=== PATIENT | male | born 1940 | race Two or more races ===

== ENCOUNTER 2019-03-06 15:39 | Emergency (ER) | payer BC, MEDICARE ==
[~2019-03-06] VITALS: Ht 180.3 cm; Wt 134.1 kg
[~2019-03-06 15:39] MED LIST: ASPI81TA52 PO; CARV-50 PO; GLIP10TA11 PO; LISI40TA4 PO; MECL12.584 PO; OXYB5TAB16 PO
[2019-03-06 16:17] LABS: BASOPHILS # (AUTO) 0.1 X10'3 (0-0.2); BASOPHILS % (AUTO) 0.6 % (0-1); EOSINOPHILS # (AUTO) 0.2 X10'3 (0-0.9); EOSINOPHILS % (AUTO) 2.7 % (0-6); HEMATOCRIT 41.9 % (42.0-52.0); HEMOGLOBIN 14.5 g/dl (14.0-17.9); LYMPHOCYTES # (AUTO) 1.8 X10'3 (1.1-4.8); MEAN CORPUSCULAR HEMOGLOBIN 33.1 PG (27.0-31.0); MEAN CORPUSCULAR HGB CONC 34.6 g/dL (33.0-36.5); MEAN CORPUSCULAR VOLUME 95.7 FL (78-98); MEAN PLATELET VOLUME 7.9 FL (7.4-10.4); MONOCYTES # (AUTO) 0.7 X10'3 (0-0.9); MONOCYTES % (AUTO) 8.2 % (2-12); NEUTROPHILS # (AUTO) 6.1 X10'3 (1.8-7.7); NEUTROPHILS % (AUTO) 68.5 % (42-75); PLATELET COUNT 254 X10'3 (140-440); RED BLOOD COUNT 4.38 X10'6 (4.70-6.10); RED CELL DISTRIBUTION WIDTH 13.4 % (11.5-14.5); WHITE BLOOD COUNT 8.9 X10'3 (4.5-11.0)
[2019-03-06 16:28] LABS: PARTIAL THROMBOPLASTIN TIME 27 SECONDS (22-32)
[2019-03-06 16:30] LABS: ALANINE AMINOTRANSFERASE 26 U/L (12-78); ALBUMIN 3.3 G/DL (3.4-5.0); ALBUMIN/GLOBULIN RATIO 0.7 (1.1-1.5); ALKALINE PHOSPHATASE 71 IU/L (46-116); ANION GAP 6 (8-16); ASPARTATE AMINO TRANSFERASE 24 U/L (10-37); BILIRUBIN,TOTAL 0.8 MG/DL (0.1-1.0); BLOOD UREA NITROGEN 12 MG/DL (7-18); BUN/CREATININE RATIO 11.7 (5.4-32.0); CALCIUM 9.4 MG/DL (8.5-10.1); CHLORIDE 98 MMOL/L (99-107); CREATININE 1.03 MG/DL (0.60-1.10); GLUCOSE 416 MG/DL (70-104); POTASSIUM 4.3 MMOL/L (3.5-5.1); SODIUM 132 MMOL/L (135-145); TOTAL CARBON DIOXIDE 28.3 MMOL/L (24-32); TOTAL PROTEIN 8.2 G/DL (6.4-8.2); eGFR 70 ML/MIN
[2019-03-06 16:54] LABS: D-DIMER 1.05 MG/L FEU (0-0.50)
[2019-03-06] MEDS ORDERED: iohexol 350MG/ML 100ml bottle IV ONE (17:47)
[2019-03-06] MEDS ORDERED: MESSAGE TO NURSING PO NR (18:42)
--- NOTE | 2019-03-06 19:24 | NUR ---
DISCUSSED PT'S BP WITH CAROLANN valderrama; new order for lisinopril 40mg once received
[2019-03-06] MEDS ORDERED: lisinopril 10 MG tablet PO ONE (19:35)
[2019-03-06 20:14] VITALS: BP 166/65
== END 2019-03-06 20:22 | disposition home or self-care (01) ==
LOC: ER 15:39
DX: S80.01XA Contusion of right knee, initial encounter (principal); R06.00 Dyspnea, unspecified; E78.00 Pure hypercholesterolemia, unspecified; I10 Essential (primary) hypertension; E11.9 Type 2 diabetes mellitus without complications; Z90.49 Acquired absence of other specified parts of digestive tract; Z79.82 Long term (current) use of aspirin; Z79.899 Other long term (current) drug therapy; W18.09XA Striking against other object with subsequent fall, initial encounter; Y93.89 Activity, other specified; Y92.89 Other specified places as the place of occurrence of the external cause; Y99.8 Other external cause status
CPT/HCPCS: 36415; 71045; 71275; 73564; 80053; 83880; 84484; 85025; 85379; 85610; 85730; 93005; 99284; Q9967

== ENCOUNTER 2019-09-17 10:04 | Inpatient (IN) | payer MEDICARE, BC ==
[~2019-09-17] VITALS: Ht 180.3 cm; Wt 138.0 kg
[~2019-09-17 10:04] MED LIST changes: +MECL-184 PO; -MECL12.584 PO
[2019-09-17] MEDS ORDERED: diltiazem 5mg/ml 5ml inj. IV ONE (10:25)
[2019-09-17] MEDS ORDERED: glipizide 5mg tablet PO SCH (11:00)
[2019-09-17] MEDS ORDERED: lisinopril 10 MG tablet PO ONE (11:00)
[2019-09-17] MEDS ORDERED: glipizide 5mg tablet PO ONE (11:00)
[2019-09-17] MEDS ORDERED: furosemide 10 MG/1 ML 10ml inj IV ONE (11:00)
[2019-09-17] MEDS ORDERED: aspirin 325mg tablet PO ONE (11:00)
[2019-09-17 11:20] LABS: BASOPHILS % (AUTO) 0.5 % (0-1); EOSINOPHILS # (AUTO) 0.1 X10'3 (0-0.9); EOSINOPHILS % (AUTO) 1.1 % (0-6); HEMATOCRIT 52.4 % (42.0-52.0); HEMOGLOBIN 17.4 g/dl (14.0-17.9); LYMPHOCYTES % (AUTO) 12.5 % (21-51); MEAN CORPUSCULAR HEMOGLOBIN 31.6 PG (27.0-31.0); MEAN CORPUSCULAR HGB CONC 33.1 g/dL (33.0-36.5); MEAN CORPUSCULAR VOLUME 95.5 FL (78-98); MEAN PLATELET VOLUME 8.1 FL (7.4-10.4); MONOCYTES # (AUTO) 0.7 X10'3 (0-0.9); MONOCYTES % (AUTO) 9.2 % (2-12); NEUTROPHILS # (AUTO) 5.9 X10'3 (1.8-7.7); NEUTROPHILS % (AUTO) 76.7 % (42-75); PLATELET COUNT 205 X10'3 (140-440); RED BLOOD COUNT 5.49 X10'6 (4.70-6.10); RED CELL DISTRIBUTION WIDTH 14.9 % (11.5-14.5); WHITE BLOOD COUNT 7.7 X10'3 (4.5-11.0)
[2019-09-17 11:32] LABS: PARTIAL THROMBOPLASTIN TIME 29 SECONDS (22-32)
[2019-09-17 11:44] LABS: ALANINE AMINOTRANSFERASE 34 U/L (12-78); ALBUMIN 3.3 G/DL (3.4-5.0); ALBUMIN/GLOBULIN RATIO 0.7 (1.1-1.5); ALKALINE PHOSPHATASE 70 IU/L (46-116); ANION GAP 4 (8-16); ASPARTATE AMINO TRANSFERASE 28 U/L (10-37); BILIRUBIN,TOTAL 1.3 MG/DL (0.1-1.0); BLOOD UREA NITROGEN 21 MG/DL (7-18); BUN/CREATININE RATIO 18.9 (5.4-32.0); CALCIUM 9.1 MG/DL (8.5-10.1); CHLORIDE 101 MMOL/L (99-107); CREATININE 1.11 MG/DL (0.60-1.10); GLUCOSE 301 MG/DL (70-104); POTASSIUM 4.5 MMOL/L (3.5-5.1); SODIUM 139 MMOL/L (135-145); TOTAL CARBON DIOXIDE 34.5 MMOL/L (24-32); TOTAL PROTEIN 7.9 G/DL (6.4-8.2); eGFR 64 ML/MIN
[2019-09-17] MEDS ORDERED: mag hydrox/Alum hydrox/simeth 30ml oral suspension PO PRN (14:10)
[2019-09-17] MEDS ORDERED: docusate sod 100mg capsule PO PRN (14:10)
[2019-09-17] MEDS ORDERED: dextrose ORAL solution 15 GM/59 ML bottle PO PRN (14:10)
[2019-09-17] MEDS ORDERED: acetaminophen 325mg tablet PO PRN (14:10)
[2019-09-17] MEDS ORDERED: magnesium Cl slow-release 64mg tablet PO PRN (14:10)
[2019-09-17] MEDS ORDERED: ondansetron/PF 4mg/2ml inj IV PRN (14:10)
[2019-09-17] MEDS ORDERED: MESSAGE TO PHARMACY PO ONE (14:10)
[2019-09-17] MEDS ORDERED: potassium CL 10mEq/100ml bag 100 ML IV PRN ×2 (14:10)
[2019-09-17] MEDS ORDERED: magnesium 4gm in 100ml NS 100 ML IV PRN (14:10)
[2019-09-17] MEDS ORDERED: dextrose 50%-water 50ml dispensing syringe IV PRN ×2 (14:10)
[2019-09-17] MEDS ORDERED: magnesium 2GM in 50ml NS 50 ML IV PRN (14:10)
[2019-09-17] MEDS ORDERED: glucagon, human recombinant 1mg kit SUBCUT PRN (14:10)
[2019-09-17] MEDS ORDERED: potassium Cl 20 mEq SR tablet PO PRN ×2 (14:10)
[2019-09-17 15:15] LABS: HEMOGLOBIN A1C 7.9 % (4.5-6.2)
[2019-09-17] MEDS ORDERED: CARV-50 PO (15:42)
--- NOTE | 2019-09-17 16:20 | NUR ---
Received report from HARPAL Toth. Waiting for patient arrival to U [id number].
--- NOTE | 2019-09-17 16:35 | NUR ---
Patient arrived to PCU and transferred from [facility] to [facility] bed. Patient oriented to room and to call light. Patient vital signs: T 97.5, RR: 22, 02 95% on 3L NC, BP 176/110, Pain 0/10. 2 RN skin check performed. No complaints at this time. All immediate needs met.
[2019-09-17 18:00] VITALS: BP 158/104
--- NOTE | 2019-09-17 18:30 | NUR ---
Problems reprioritized. Patient report given, questions answered & plan of care reviewed with Surinder RN. Patient stable at transfer of care.
[2019-09-17] MEDS: insulin Lispro (HumaLOG) vial - multi-dose SQ SCH (19:30)
[2019-09-17] MEDS: K and/or MAG REPLACEMENT MC SCH (19:32)
--- NOTE | 2019-09-17 19:34 | NUR ---
Patient in room PCU 3027. I have received report from Latonya ROWAN and had the opportunity to ask questions and assume patient care.
[2019-09-17] MEDS ORDERED: carVEDilol 12.5mg tablet PO SCH (20:00)
[2019-09-17] MEDS: apixaban 5mg tablet PO SCH (20:11)
[2019-09-17] MEDS: carVEDilol 12.5mg tablet PO SCH (20:11)
[2019-09-17] MEDS: furosemide 40mg/4ml inj IV SCH (20:11)
[2019-09-17] MEDS: insulin glargine (Lantus) pen - multi-dose SQ SCH (21:00)
[2019-09-17] MEDS: nystatin 15 GM powder TP SCH (21:00)
--- NOTE | 2019-09-17 21:00 | NUR ---
Patients blood sugar 322, explained to patient the need for him to have insulin. Patient does not want to take insulin now and just wants to take his glipizide in the morning.
[2019-09-17 22:00] VITALS: BP 146/89
[2019-09-18] VITALS (7 sets, daily range): BP systolic 109–148; BP diastolic 61–78
[2019-09-18 05:02] LABS: BASOPHILS % (AUTO) 0.4 % (0-1); EOSINOPHILS # (AUTO) 0.1 X10'3 (0-0.9); EOSINOPHILS % (AUTO) 2.3 % (0-6); HEMATOCRIT 49.9 % (42.0-52.0); HEMOGLOBIN 16.6 g/dl (14.0-17.9); LYMPHOCYTES # (AUTO) 0.9 X10'3 (1.1-4.8); LYMPHOCYTES % (AUTO) 15.6 % (21-51); MEAN CORPUSCULAR HEMOGLOBIN 31.6 PG (27.0-31.0); MEAN CORPUSCULAR HGB CONC 33.3 g/dL (33.0-36.5); MONOCYTES # (AUTO) 0.6 X10'3 (0-0.9); MONOCYTES % (AUTO) 10.5 % (2-12); NEUTROPHILS # (AUTO) 4.3 X10'3 (1.8-7.7); NEUTROPHILS % (AUTO) 71.2 % (42-75); PLATELET COUNT 182 X10'3 (140-440); RED BLOOD COUNT 5.25 X10'6 (4.70-6.10); RED CELL DISTRIBUTION WIDTH 14.7 % (11.5-14.5)
[2019-09-18 05:30] LABS: ALANINE AMINOTRANSFERASE 27 U/L (12-78); ALBUMIN 2.9 G/DL (3.4-5.0); ALBUMIN/GLOBULIN RATIO 0.7 (1.1-1.5); ALKALINE PHOSPHATASE 64 IU/L (46-116); ANION GAP 3 (8-16); ASPARTATE AMINO TRANSFERASE 26 U/L (10-37); BILIRUBIN,TOTAL 1.3 MG/DL (0.1-1.0); BLOOD UREA NITROGEN 18 MG/DL (7-18); BUN/CREATININE RATIO 17.8 (5.4-32.0); CALCIUM 8.5 MG/DL (8.5-10.1); CHLORIDE 100 MMOL/L (99-107); CHOL/HDL RATIO 2.8 (0.00-4.99); CHOLESTEROL 122 MG/DL (0-200); CREATININE 1.01 MG/DL (0.60-1.10); GLUCOSE 258 MG/DL (70-104); HDL CHOLESTEROL 44 MG/DL (35-60); LDL CHOLESTEROL 64 MG/DL (50-100); MAGNESIUM 1.6 MG/DL (1.5-2.4); POTASSIUM 3.5 MMOL/L (3.5-5.1); SODIUM 137 MMOL/L (135-145); TOTAL CARBON DIOXIDE 33.7 MMOL/L (24-32); TOTAL PROTEIN 7.2 G/DL (6.4-8.2); TRIGLYCERIDES 92 MG/DL (20-135); eGFR 72 ML/MIN
--- NOTE | 2019-09-18 06:10 | NUR ---
Patient in room PCU 3027P. I have received report from Surinder ROWAN and had the opportunity to ask questions and assume patient care.
--- NOTE | 2019-09-18 06:20 | NUR ---
Problems reprioritized. Patient report given, questions answered & plan of care reviewed with Ann Campa.
[2019-09-18] MEDS: nystatin 15 GM powder TP SCH ×3 (08:00→21:36)
[2019-09-18] MEDS: K and/or MAG REPLACEMENT MC SCH ×2 (08:00→20:00)
--- NOTE | 2019-09-18 08:15 | NUR ---
Patient self removed IV in middle of night last night. Unable to give lasix IV at time of medication administration. Dr. Del Valle notified at 0930 in person that pt discontinued IV. Orders to give one time dose of Lasix 40mg PO and then resume BID dosing of PO lasix as planned tonight.
[2019-09-18] MEDS: furosemide 40mg/4ml inj IV SCH (08:24)
[2019-09-18] MEDS: aspirin 81mg tablet.DR PO SCH (08:25)
[2019-09-18] MEDS: enoxaparin 40mg/0.4ml syringe SQ SCH (08:25)
[2019-09-18] MEDS: carVEDilol 12.5mg tablet PO SCH ×2 (08:25→19:08)
[2019-09-18] MEDS: lisinopril 20mg tablet PO SCH (08:26)
[2019-09-18] MEDS: apixaban 5mg tablet PO SCH ×2 (08:26→19:09)
[2019-09-18] MEDS: insulin Lispro (HumaLOG) vial - multi-dose SQ SCH ×3 (08:34→19:18)
[2019-09-18] MEDS ORDERED: furosemide 20MG tablet PO ONE (09:30)
--- NOTE | 2019-09-18 13:10 | NUR ---
DM Consult: A1C 7.9 hx T2DM. Pt seen by RD for written/verbal DM ed w/ RD contact information provided. Pt declined verbal DM ed at this time; RD encouraged pt to attend CDE course once reopens. Pt does report disliking cucumbers but no allergies/texture preferences. Dietary notified. Addendum: 09/18/19 at [address] Amended: Links added.
--- NOTE | 2019-09-18 18:20 | NUR ---
Problems reprioritized. Patient report given, questions answered & plan of care reviewed with Macey ROWAN.
[2019-09-18] MEDS: furosemide 20MG tablet PO SCH (19:09)
[2019-09-18] MEDS: insulin glargine (Lantus) pen - multi-dose SQ SCH (21:00)
[2019-09-18] MEDS: dextrose ORAL solution 15 GM/59 ML bottle PO PRN ×2 (21:44→22:05)
--- NOTE | 2019-09-18 22:16 | NUR ---
Pt's blood sugar @ 2137 = 69; he is alert/oriented x 4, has cold, clammy skin. Gluco-shot 15 grams was immediately administered to the pt and rechecked BS after 15 minutes. BS was 61 @ 2203 ; pt is a/o x 4 still, still has cold, clammy skin. Second dose of Gluco-shot & snacks were given. Blood sugar rechecked @ 2216, BS = 146; pt stated that he felt better.
[2019-09-19] VITALS (7 sets, daily range): BP systolic 121–141; BP diastolic 68–83
[2019-09-19 06:05] LABS: BASOPHILS % (AUTO) 0.4 % (0-1); EOSINOPHILS # (AUTO) 0.1 X10'3 (0-0.9); EOSINOPHILS % (AUTO) 1.2 % (0-6); HEMATOCRIT 47.6 % (42.0-52.0); LYMPHOCYTES # (AUTO) 1.4 X10'3 (1.1-4.8); LYMPHOCYTES % (AUTO) 18.4 % (21-51); MEAN CORPUSCULAR HEMOGLOBIN 31.9 PG (27.0-31.0); MEAN CORPUSCULAR HGB CONC 33.7 g/dL (33.0-36.5); MEAN CORPUSCULAR VOLUME 94.7 FL (78-98); MEAN PLATELET VOLUME 8.1 FL (7.4-10.4); MONOCYTES # (AUTO) 0.9 X10'3 (0-0.9); MONOCYTES % (AUTO) 12.5 % (2-12); NEUTROPHILS % (AUTO) 67.5 % (42-75); PLATELET COUNT 201 X10'3 (140-440); RED BLOOD COUNT 5.02 X10'6 (4.70-6.10); RED CELL DISTRIBUTION WIDTH 14.3 % (11.5-14.5); WHITE BLOOD COUNT 7.3 X10'3 (4.5-11.0)
[2019-09-19 06:21] LABS: ALANINE AMINOTRANSFERASE 25 U/L (12-78); ALBUMIN 2.9 G/DL (3.4-5.0); ALBUMIN/GLOBULIN RATIO 0.7 (1.1-1.5); ALKALINE PHOSPHATASE 60 IU/L (46-116); ANION GAP 4 (8-16); ASPARTATE AMINO TRANSFERASE 29 U/L (10-37); BILIRUBIN,TOTAL 1.2 MG/DL (0.1-1.0); BLOOD UREA NITROGEN 21 MG/DL (7-18); BUN/CREATININE RATIO 19.4 (5.4-32.0); CALCIUM 8.6 MG/DL (8.5-10.1); CHLORIDE 100 MMOL/L (99-107); CREATININE 1.08 MG/DL (0.60-1.10); GLUCOSE 100 MG/DL (70-104); MAGNESIUM 1.6 MG/DL (1.5-2.4); POTASSIUM 3.5 MMOL/L (3.5-5.1); SODIUM 139 MMOL/L (135-145); TOTAL CARBON DIOXIDE 35.1 MMOL/L (24-32); TOTAL PROTEIN 7.2 G/DL (6.4-8.2); eGFR 66 ML/MIN
--- NOTE | 2019-09-19 06:27 | NUR ---
Problems reprioritized. Patient report given, questions answered & plan of care reviewed with HARPAL Juarez.
--- NOTE | 2019-09-19 06:30 | NUR ---
Patient in room PCU 3027. I have received report from HARPAL Mcmillan and had the opportunity to ask questions and assume patient care. Patient sitting up in bedside chair, introduced myself as his day RN, nothing needed at this time, informed I am going to finish getting report and will be back to assist with any needs.
[2019-09-19] MEDS: K and/or MAG REPLACEMENT MC SCH ×2 (08:00→20:00)
[2019-09-19] MEDS: carVEDilol 12.5mg tablet PO SCH ×2 (08:41→19:03)
[2019-09-19] MEDS: furosemide 20MG tablet PO SCH ×2 (08:41→19:03)
[2019-09-19] MEDS: aspirin 81mg tablet.DR PO SCH (08:41)
[2019-09-19] MEDS: apixaban 5mg tablet PO SCH ×2 (08:41→19:03)
[2019-09-19] MEDS: lisinopril 20mg tablet PO SCH (08:42)
[2019-09-19] MEDS: enoxaparin 40mg/0.4ml syringe SQ SCH (08:42)
[2019-09-19] MEDS: nystatin 15 GM powder TP SCH ×3 (08:44→20:50)
[2019-09-19] MEDS ORDERED: PHENYLEPH/MIN OIL/PETROLAT hemorrhoid oint 57GM tube RC PRN (10:15)
--- NOTE | 2019-09-19 10:20 | NUR ---
Per Dr Michel, order preparation H PRN for hemorrhoids, and put on a 1200ml/Q24H fluid restriction.
[2019-09-19] MEDS: insulin Lispro (HumaLOG) vial - multi-dose SQ SCH ×2 (13:25→19:07)
--- NOTE | 2019-09-19 16:27 | NUR ---
O2 Sat at rest on room air:__91_% If below 89%: Recovery O2 Sat at rest on ___LPM:___%:___% via (mask/nasal cannula, etc..) No further documentation is necessary. If O2 Sat did not drop below 89% on room air,ambulate patient on room air. O2 Sat while ambulating on room air:__82_% Recovery O2 Sat while ambulating on __3_LPM:_92__% with nasal cannula No further documentation is necessary. If patient does not drop below 89% while ambulating, he/she does not qualify for home O2.
--- NOTE | 2019-09-19 18:33 | NUR ---
Problems reprioritized. Patient report given, questions answered & plan of care reviewed with HARPAL Bhatia. All patient needs met at this time.
--- NOTE | 2019-09-19 18:43 | NUR ---
Patient in room PCU 3027. I have received report from Ann Espino RN and had the opportunity to ask questions and assume patient care.
[2019-09-19] MEDS: insulin glargine (Lantus) pen - multi-dose SQ SCH (20:54)
[2019-09-20 02:00] VITALS: BP 123/71
[2019-09-20 05:54] LABS: BASOPHILS % (AUTO) 0.6 % (0-1); EOSINOPHILS # (AUTO) 0.2 X10'3 (0-0.9); EOSINOPHILS % (AUTO) 3.1 % (0-6); HEMATOCRIT 48.5 % (42.0-52.0); HEMOGLOBIN 16.2 g/dl (14.0-17.9); LYMPHOCYTES # (AUTO) 1.2 X10'3 (1.1-4.8); LYMPHOCYTES % (AUTO) 21.2 % (21-51); MEAN CORPUSCULAR HEMOGLOBIN 31.5 PG (27.0-31.0); MEAN CORPUSCULAR HGB CONC 33.4 g/dL (33.0-36.5); MEAN CORPUSCULAR VOLUME 94.5 FL (78-98); MONOCYTES # (AUTO) 0.9 X10'3 (0-0.9); MONOCYTES % (AUTO) 14.9 % (2-12); NEUTROPHILS # (AUTO) 3.5 X10'3 (1.8-7.7); NEUTROPHILS % (AUTO) 60.2 % (42-75); PLATELET COUNT 207 X10'3 (140-440); RED BLOOD COUNT 5.13 X10'6 (4.70-6.10); RED CELL DISTRIBUTION WIDTH 14.7 % (11.5-14.5); WHITE BLOOD COUNT 5.8 X10'3 (4.5-11.0)
[2019-09-20 06:00] VITALS: BP 137/72
--- NOTE | 2019-09-20 06:15 | NUR ---
Problems reprioritized. Patient report given, questions answered & plan of care reviewed with Vik Juarez RN.
--- NOTE | 2019-09-20 06:27 | NUR ---
Patient in room PCU 3027. I have received report from HARPAL Bhatia and had the opportunity to ask questions and assume patient care. Patient currently sitting up in chair at bedside, bed locked and low, call light in reach, no acute distress, will continue to monitor.
[2019-09-20 06:30] LABS: ALANINE AMINOTRANSFERASE 25 U/L (12-78); ALBUMIN 2.8 G/DL (3.4-5.0); ALBUMIN/GLOBULIN RATIO 0.6 (1.1-1.5); ALKALINE PHOSPHATASE 58 IU/L (46-116); ANION GAP 6 (8-16); ASPARTATE AMINO TRANSFERASE 30 U/L (10-37); BILIRUBIN,TOTAL 1.2 MG/DL (0.1-1.0); BLOOD UREA NITROGEN 22 MG/DL (7-18); BUN/CREATININE RATIO 21.8 (5.4-32.0); CALCIUM 8.6 MG/DL (8.5-10.1); CHLORIDE 101 MMOL/L (99-107); CREATININE 1.01 MG/DL (0.60-1.10); GLUCOSE 75 MG/DL (70-104); MAGNESIUM 1.7 MG/DL (1.5-2.4); POTASSIUM 3.6 MMOL/L (3.5-5.1); SODIUM 139 MMOL/L (135-145); TOTAL CARBON DIOXIDE 31.8 MMOL/L (24-32); TOTAL PROTEIN 7.2 G/DL (6.4-8.2); eGFR 72 ML/MIN
[2019-09-20] MEDS: K and/or MAG REPLACEMENT MC SCH (08:00)
[2019-09-20] MEDS: apixaban 5mg tablet PO SCH (08:29)
[2019-09-20] MEDS: furosemide 20MG tablet PO SCH (08:30)
[2019-09-20] MEDS: carVEDilol 12.5mg tablet PO SCH (08:30)
[2019-09-20] MEDS: lisinopril 20mg tablet PO SCH (08:32)
[2019-09-20] MEDS: aspirin 81mg tablet.DR PO SCH (08:33)
[2019-09-20] MEDS: nystatin 15 GM powder TP SCH (08:34)
[2019-09-20 11:00] VITALS: BP 136/76
[2019-09-20] MEDS ORDERED: POTA20TA19 PO (12:07)
[2019-09-20] MEDS ORDERED: APIX5TAB3 PO (12:07)
[2019-09-20] MEDS ORDERED: FURO40TA4 PO (12:07)
--- NOTE | 2019-09-20 12:45 | NUR ---
Received orders for patient to discharge to home. Patient received oxygen concentrator from [employer] for home use, patient educated on use and verbalized understanding of teaching. Educated on new medications, informed medications were ordered from [facility] on [address] as he cannot wait until his mail-order prescriptions arrive to begin taking them. he verbalized understanding of the teaching. IV removed, catheter tip intact, hemostasis achieved, telemetry removed, wristband removed. Patient was taken to his vehicle via wheelchair, patient was able to put himself in the vehicle with O2 in the backseat, belongings placed in patient's trunk. patient stable and independent at time of discharge.
--- NOTE | 2019-09-22 13:05 | NUR ---
PAGER ID: [phone] MESSAGE: Pt: Anselmo Rivera Bubba 03/19/1938. DC: 09/20/19. Rx was not ordered as per prog note. Pt prefers [facility] on [address]. Eliquis 5mg tab PO BID, #60, Lasix 40mg 1 tab daily #30, K-Dur 20meq 1 tab daily #30. thank you, Cinthia [phone] Addendum: 09/22/19 at 1320 by Citnhia Trivedi RN Case Management DC follow up: Spoke to pt via telephone: Reports Rx was supposed to be called into [facility]. Pt went to [facility] and there was not an order. This nurse called [facility] on [address] as per DC prog note, confirmed no order received. Pt prefers [facility] on [address] as it is more convenient to get to. paged Dr Michel. At this time, pt denies worsening SOB, resp distress, Acute CP, emergent general pain, worsening BLE edema, abd pain, DUNAWAY vertigo, NV. Pt acknowledges follow up/keep appt w/PCP Asiya, Labs done Sun/results to PCP. Dr De Jesus. 1 week. Advised pt to go ever DC packet w/MD orders and bring with to appts. pt will follow up w/[facility] in a few hours to see if Rx, Eliquis, lasix, K-Dur, are ready to [facility]. Pt will inquire w/pharmacy to see if they are able to deliver. [facility] will be at pt home for intake 09/23/19. Pt understands s/s that would warrant 9-11/ER visit for further evaluation. Aside from Rx called in, needs met, questions answered at DC, no further questions at this time.
== END 2019-09-20 12:45 | disposition home health service (06) | DRG 291 ==
LOC: ER 10:05 → ED HOLD 14:06 → PCU 3S 16:35
PROVIDERS: ADMIT Family Medicine; ATTEND Family Medicine
DX: I11.0 Hypertensive heart disease with heart failure (principal); I50.21 Acute systolic (congestive) heart failure; E11.9 Type 2 diabetes mellitus without complications; I48.91 Unspecified atrial fibrillation; R09.02 Hypoxemia; N28.9 Disorder of kidney and ureter, unspecified; G47.33 Obstructive sleep apnea (adult) (pediatric); E78.00 Pure hypercholesterolemia, unspecified; I25.10 Atherosclerotic heart disease of native coronary artery without angina pectoris; Z82.41 Family history of sudden cardiac death; Z83.3 Family history of diabetes mellitus; Z90.49 Acquired absence of other specified parts of digestive tract; Z79.899 Other long term (current) drug therapy
CPT/HCPCS: 36415; 71045; 76937; 80053; 80061; 82948; 83036; 83605; 83735; 83880; 84484; 85025; 85610; 85730; 87040; 87081; 87635; 93005; 93306; 96374; 96375; 97110; 97112; 97116; 97162; 97530; 97535; 99285; G0378; J1650; J1815; J1940; J3490

== ENCOUNTER 2019-11-30 08:52 | Inpatient (IN) | payer MEDICARE, BC ==
[~2019-11-30] VITALS: Ht 180.3 cm; Wt 130.9 kg
[~2019-11-30 08:52] MED LIST changes: +APIX5TAB3 PO; -ASPI81TA52 PO; +DOXY-1 PO; +FURO40TA4 PO; -MECL-184 PO; -OXYB5TAB16 PO; +POTA20TA19 PO
[2019-11-30] MEDS ORDERED: diltiazem 5mg/ml 5ml inj. IV ONE (09:10)
[2019-11-30 09:35] LABS: BASOPHILS % (AUTO) 0.5 % (0-1); EOSINOPHILS # (AUTO) 0.1 X10'3 (0-0.9); EOSINOPHILS % (AUTO) 1.9 % (0-6); HEMATOCRIT 46.8 % (42.0-52.0); HEMOGLOBIN 15.4 g/dl (14.0-17.9); LYMPHOCYTES # (AUTO) 1.4 X10'3 (1.1-4.8); LYMPHOCYTES % (AUTO) 24.6 % (21-51); MEAN CORPUSCULAR HEMOGLOBIN 31.3 PG (27.0-31.0); MEAN CORPUSCULAR HGB CONC 32.8 g/dL (33.0-36.5); MEAN CORPUSCULAR VOLUME 95.3 FL (78-98); MONOCYTES # (AUTO) 0.5 X10'3 (0-0.9); MONOCYTES % (AUTO) 9.6 % (2-12); NEUTROPHILS # (AUTO) 3.5 X10'3 (1.8-7.7); NEUTROPHILS % (AUTO) 63.4 % (42-75); PLATELET COUNT 162 X10'3 (140-440); RED BLOOD COUNT 4.91 X10'6 (4.70-6.10); WHITE BLOOD COUNT 5.6 X10'3 (4.5-11.0)
[2019-11-30 09:48] LABS: ALANINE AMINOTRANSFERASE 25 U/L (12-78); ALBUMIN 2.9 G/DL (3.4-5.0); ALBUMIN/GLOBULIN RATIO 0.6 (1.1-1.5); ALKALINE PHOSPHATASE 57 IU/L (46-116); ANION GAP 2 (8-16); ASPARTATE AMINO TRANSFERASE 31 U/L (10-37); BILIRUBIN,TOTAL 1.6 MG/DL (0.1-1.0); BLOOD UREA NITROGEN 16 MG/DL (7-18); BUN/CREATININE RATIO 16.7 (5.4-32.0); CALCIUM 9.2 MG/DL (8.5-10.1); CHLORIDE 103 MMOL/L (99-107); CREATININE 0.96 MG/DL (0.60-1.10); GLUCOSE 225 MG/DL (70-104); POTASSIUM 3.9 MMOL/L (3.5-5.1); SODIUM 140 MMOL/L (135-145); TOTAL CARBON DIOXIDE 35.5 MMOL/L (24-32); TOTAL PROTEIN 7.7 G/DL (6.4-8.2); eGFR 76 ML/MIN
[2019-11-30 11:00] VITALS: BP 169/105
[2019-11-30] MEDS ORDERED: magnesium 4gm in 100ml NS 100 ML IV PRN (11:00)
[2019-11-30] MEDS ORDERED: dextrose ORAL solution 15 GM/59 ML bottle PO PRN ×2 (11:00)
[2019-11-30] MEDS ORDERED: potassium CL 10mEq/100ml bag 100 ML IV PRN ×2 (11:00)
[2019-11-30] MEDS ORDERED: diphenhydrAMINE 25mg capsule PO PRN (11:00)
[2019-11-30] MEDS ORDERED: potassium Cl 20 mEq SR tablet PO PRN (11:00)
[2019-11-30] MEDS ORDERED: glucagon, human recombinant 1mg kit SUBCUT PRN (11:00)
[2019-11-30] MEDS ORDERED: MESSAGE TO PHARMACY PO ONE (11:00)
[2019-11-30] MEDS ORDERED: morphine 2 MG/ML inj. syringe IV PRN ×2 (11:00)
[2019-11-30] MEDS ORDERED: acetaminophen 650mg rectal suppository RC PRN (11:00)
[2019-11-30] MEDS ORDERED: mag hydrox/Alum hydrox/simeth 30ml oral suspension PO PRN (11:00)
[2019-11-30] MEDS ORDERED: dextrose 50%-water 50ml dispensing syringe IV PRN ×2 (11:00)
[2019-11-30] MEDS ORDERED: magnesium 2GM in 50ml NS 50 ML IV PRN (11:00)
[2019-11-30] MEDS ORDERED: HYDROcodone/acetaminophen 5mg/325mg tablet PO PRN (11:00)
[2019-11-30] MEDS ORDERED: ondansetron/PF 4mg/2ml inj IV PRN (11:00)
[2019-11-30] MEDS ORDERED: bisacodyl 10mg suppository rectal RC PRN (11:00)
[2019-11-30] MEDS ORDERED: acetaminophen 325mg tablet PO PRN ×2 (11:00)
[2019-11-30] MEDS ORDERED: magnesium Cl slow-release 64mg tablet PO PRN (11:00)
[2019-11-30] MEDS ORDERED: HYDROcodone/acetaminophen 10/325mg tab PO PRN (11:00)
[2019-11-30] MEDS ORDERED: magnesium hydroxide 30ml (MOM) UD suspension PO PRN (11:00)
[2019-11-30] MEDS ORDERED: metoprolol tartrate 1mg/ml inj IV PRN (11:05)
[2019-11-30] MEDS ORDERED: nitroGLYCERIN 0.4mg SUBLingual tab SL PRN (11:05)
[2019-11-30] MEDS ORDERED: aminophylline 250mg/10ml inj. IV PRN (11:05)
[2019-11-30] MEDS ORDERED: regadenoson 0.4mg/5ml syringe IV PRN (11:05)
[2019-11-30] MEDS ORDERED: diltiazem-NS 100mg/100ml 100 ML IV SCH (11:15)
[2019-11-30] MEDS: furosemide 10 MG/1 ML 10ml inj IV SCH ×3 (11:54→23:33)
--- NOTE | 2019-11-30 12:14 | NUR ---
Received report from ED RN, patient arrived to unit, oriented to room, VS obtained, call light within reach, assessment done, MD at bedside, new orders obtained, Dr. Comer spoke with the patient about resusitation status during which time the patient stated he did not want to be a full code, will continue to monitor.
[2019-11-30 12:29] LABS: HEMOGLOBIN A1C 9.3 % (4.5-6.2)
[2019-11-30 15:00] VITALS: BP 146/88
[2019-11-30] MEDS: insulin Lispro (HumaLOG) vial - multi-dose SQ SCH (16:47)
[2019-11-30 18:00] VITALS: BP 147/48
--- NOTE | 2019-11-30 18:35 | NUR ---
Problems reprioritized. Patient report given, questions answered & plan of care reviewed with Bailey ROWAN. Patient stable at transfer of care, patient sitting in bedside chair, offers no complaints at this time.
[2019-11-30 18:42] LABS: CLARITY,URINE CLEAR (Clear); COLOR,URINE YELLOW (Yellow); GLUCOSE, URINE NEGATIVE (Neg); KETONES,URINE NEGATIVE (Neg); LEUKOCYTE ESTERASE ,URINE NEGATIVE (Neg); NITRITES, URINE NEGATIVE (Neg); OCCULT BLOOD,URINE TRACE-INTACT (Neg); PROTEIN,URINE TRACE mg/dl (Neg); UROBILINOGEN,URINE 0.2 E.U/dL (0.2-1.0)
[2019-11-30 18:47] LABS: UA COLLECTION TYPE CLN CATCH MIDSTREAM
[2019-11-30 18:48] LABS: BACTERIA,URINE NONE SEEN /HPF (Neg); RBC,URINE 0-2 /HPF (0-2); SQUAMOUS EPITHELIAL CELL,UR FEW /LPF (FEW); WBC,URINE NONE SEEN /HPF (0-4)
[2019-11-30] MEDS: K and/or MAG REPLACEMENT MC SCH (19:30)
[2019-11-30] MEDS: insulin glargine (Lantus) pen - multi-dose SQ SCH (21:23)
[2019-11-30 22:00] VITALS: BP 134/83
[2019-12-01] VITALS (12 sets, daily range): BP systolic 101–149; BP diastolic 58–83
[2019-12-01 04:57] LABS: BASOPHILS % (AUTO) 0.5 % (0-1); EOSINOPHILS # (AUTO) 0.2 X10'3 (0-0.9); EOSINOPHILS % (AUTO) 3.5 % (0-6); HEMATOCRIT 46.3 % (42.0-52.0); HEMOGLOBIN 15.5 g/dl (14.0-17.9); LYMPHOCYTES # (AUTO) 1.6 X10'3 (1.1-4.8); LYMPHOCYTES % (AUTO) 25.7 % (21-51); MEAN CORPUSCULAR HEMOGLOBIN 31.7 PG (27.0-31.0); MEAN CORPUSCULAR HGB CONC 33.5 g/dL (33.0-36.5); MEAN CORPUSCULAR VOLUME 94.6 FL (78-98); MEAN PLATELET VOLUME 7.9 FL (7.4-10.4); MONOCYTES # (AUTO) 0.9 X10'3 (0-0.9); MONOCYTES % (AUTO) 14.1 % (2-12); NEUTROPHILS # (AUTO) 3.5 X10'3 (1.8-7.7); NEUTROPHILS % (AUTO) 56.2 % (42-75); PLATELET COUNT 156 X10'3 (140-440); RED CELL DISTRIBUTION WIDTH 15.1 % (11.5-14.5); WHITE BLOOD COUNT 6.3 X10'3 (4.5-11.0)
[2019-12-01 05:18] LABS: ALANINE AMINOTRANSFERASE 28 U/L (12-78); ALBUMIN/GLOBULIN RATIO 0.6 (1.1-1.5); ALKALINE PHOSPHATASE 58 IU/L (46-116); ANION GAP 1 (8-16); ASPARTATE AMINO TRANSFERASE 38 U/L (10-37); BILIRUBIN,TOTAL 1.5 MG/DL (0.1-1.0); BLOOD UREA NITROGEN 19 MG/DL (7-18); BUN/CREATININE RATIO 21.6 (5.4-32.0); CALCIUM 8.9 MG/DL (8.5-10.1); CHLORIDE 101 MMOL/L (99-107); CHOL/HDL RATIO 2.3 (0.00-4.99); CHOLESTEROL 132 MG/DL (0-200); CREATININE 0.88 MG/DL (0.60-1.10); GLUCOSE 83 MG/DL (70-104); HDL CHOLESTEROL 57 MG/DL (35-60); LDL CHOLESTEROL 69 MG/DL (50-100); MAGNESIUM 1.6 MG/DL (1.5-2.4); PHOSPHORUS 3.6 MG/DL (2.3-4.5); POTASSIUM 3.1 MMOL/L (3.5-5.1); SODIUM 140 MMOL/L (135-145); TOTAL CARBON DIOXIDE 37.6 MMOL/L (24-32); TOTAL PROTEIN 7.9 G/DL (6.4-8.2); TRIGLYCERIDES 62 MG/DL (20-135); eGFR 84 ML/MIN
--- NOTE | 2019-12-01 06:00 | NUR ---
Patient in room PCU 3028. I have received report from Bailey ROWAN and had the opportunity to ask questions and assume patient care. Patient sitting in bedside chair, offers no complaints, will continue to monitor.
--- NOTE | 2019-12-01 06:09 | NUR ---
REPORT GIVEN TO PINA/Pérez GRIGSBY. ALL QUESTIONS ANSWERED.
[2019-12-01] MEDS: K and/or MAG REPLACEMENT MC SCH ×2 (08:00→20:00)
[2019-12-01] MEDS: lisinopril 20mg tablet PO SCH (11:02)
[2019-12-01] MEDS: potassium Cl 20 mEq SR tablet PO PRN ×2 (11:02→19:35)
--- NOTE | 2019-12-01 11:51 | NUR ---
DM Consult: A1C 9.3. Pt seen by RD for written/verbal DM ed w/ RD contact information provided. Pt very passive during RD visit; declined verbal ed and initially declined written ed though accepted following RD encouragement. A1C 7.9 in September this year previously. Pt reports no issues w/ meds, takes glipizide BID per Rx, and declines to report on any diet changes. Addendum: 12/01/19 at [address] Amended: Links added.
[2019-12-01] MEDS ORDERED: OXYB5TAB16 PO (13:01)
--- NOTE | 2019-12-01 14:07 | NUR ---
PAGER ID: [phone] MESSAGE: Willie ChristineNicole. Pt's david results are available. Will order the patient a tray unless otherwise instructed. Thank you, Donita [phone]
--- NOTE | 2019-12-01 18:10 | NUR ---
Patient in room PCU 3028. I have received report from HARPAL Duckworth and had the opportunity to ask questions and assume patient care.
--- NOTE | 2019-12-01 18:19 | NUR ---
Problems reprioritized. Patient report given, questions answered & plan of care reviewed with Catherine Campa. Patient stable at transfer of care.
[2019-12-01] MEDS: insulin Lispro (HumaLOG) vial - multi-dose SQ SCH (19:24)
[2019-12-01] MEDS: apixaban 5mg tablet PO SCH (19:35)
[2019-12-01] MEDS: carVEDilol 12.5mg tablet PO SCH (19:35)
[2019-12-01] MEDS: furosemide 10 MG/1 ML 10ml inj IV SCH (19:41)
[2019-12-01] MEDS: insulin glargine (Lantus) pen - multi-dose SQ SCH (21:05)
[2019-12-02 02:00] VITALS: BP 117/64
--- NOTE | 2019-12-02 06:05 | NUR ---
Problems reprioritized. Patient report given, questions answered & plan of care reviewed with HARPAL Duckworth.
[2019-12-02 06:09] LABS: BASOPHILS % (AUTO) 0.5 % (0-1); EOSINOPHILS # (AUTO) 0.1 X10'3 (0-0.9); EOSINOPHILS % (AUTO) 2.1 % (0-6); HEMATOCRIT 46.8 % (42.0-52.0); HEMOGLOBIN 15.7 g/dl (14.0-17.9); LYMPHOCYTES # (AUTO) 1.8 X10'3 (1.1-4.8); LYMPHOCYTES % (AUTO) 29.8 % (21-51); MEAN CORPUSCULAR HGB CONC 33.6 g/dL (33.0-36.5); MEAN PLATELET VOLUME 7.7 FL (7.4-10.4); MONOCYTES # (AUTO) 0.8 X10'3 (0-0.9); MONOCYTES % (AUTO) 12.6 % (2-12); NEUTROPHILS # (AUTO) 3.3 X10'3 (1.8-7.7); PLATELET COUNT 164 X10'3 (140-440); RED BLOOD COUNT 4.93 X10'6 (4.70-6.10); RED CELL DISTRIBUTION WIDTH 14.9 % (11.5-14.5)
[2019-12-02 06:30] LABS: ALANINE AMINOTRANSFERASE 25 U/L (12-78); ALBUMIN 2.7 G/DL (3.4-5.0); ALBUMIN/GLOBULIN RATIO 0.6 (1.1-1.5); ALKALINE PHOSPHATASE 53 IU/L (46-116); ANION GAP 1 (8-16); ASPARTATE AMINO TRANSFERASE 28 U/L (10-37); BILIRUBIN,TOTAL 1.1 MG/DL (0.1-1.0); BLOOD UREA NITROGEN 23 MG/DL (7-18); BUN/CREATININE RATIO 19.7 (5.4-32.0); CHLORIDE 101 MMOL/L (99-107); CREATININE 1.17 MG/DL (0.60-1.10); GLUCOSE 120 MG/DL (70-104); MAGNESIUM 1.6 MG/DL (1.5-2.4); PHOSPHORUS 4.2 MG/DL (2.3-4.5); POTASSIUM 3.7 MMOL/L (3.5-5.1); SODIUM 140 MMOL/L (135-145); TOTAL CARBON DIOXIDE 38.4 MMOL/L (24-32); TOTAL PROTEIN 7.4 G/DL (6.4-8.2); eGFR 60 ML/MIN
[2019-12-02 07:00] VITALS: BP 123/65
[2019-12-02] MEDS: K and/or MAG REPLACEMENT MC SCH (08:00)
[2019-12-02] MEDS: furosemide 10 MG/1 ML 10ml inj IV SCH (09:05)
[2019-12-02] MEDS: apixaban 5mg tablet PO SCH (09:06)
[2019-12-02] MEDS: carVEDilol 12.5mg tablet PO SCH (09:06)
[2019-12-02 09:07] VITALS: BP_SYST 123
[2019-12-02] MEDS: lisinopril 20mg tablet PO SCH (09:07)
[2019-12-02] MEDS: insulin Lispro (HumaLOG) vial - multi-dose SQ SCH ×2 (09:11→14:06)
[2019-12-02] MEDS ORDERED: METF-950 PO (10:48)
[2019-12-02] MEDS ORDERED: LINA5TAB4 PO (10:48)
[2019-12-02] MEDS ORDERED: NITR0.4T51 SL (10:48)
--- NOTE | 2019-12-02 14:04 | NUR ---
Rm 3028B, Nicole. Patient would like 4 wheel walker for discharge can you please call me and put in a note so case [facility] can get him one.
--- NOTE | 2019-12-02 16:21 | NUR ---
Patient was discharged at 1610. Patient was educated and reviewed discharge packet before signing and being sent home with patient. New RX were called in to [facility] on [address], and patient will have a four wheeled walker delivered to his home 12/02. PIV was removed and tele was d/c'd. Patient will make his own followup appt with Dr. Braden and Dr. De Jesus. Patient was wheeled down and left via his own car.
--- NOTE | 2019-12-03 10:54 | NUR ---
Case Management DC follow up: spoke to pt via telephone. s/p:afib, CHF exac, CP, SOB. Reports:"doing a lot better" Denies: acute/continuous CP, emergent/worsening SOB, resp distress, N/V, DUNAWAY, blurry vision, vertigo, syncope episodes, weakness,emergent general pain, abd tenderness/distension, bladder pain, dysuria, polyuria, hematuria, retention, constipation, diarrhea, fever, unexplained bleeding, bruising. Verbalizes understanding of s/s that warrant 9-11/ER visit for further evaluation. Verbalizes understanding of new Rx: Lasix, tradjenta, metformin, Nitroglycerin and why prescribed, resumes current Rx, taking as ordered, no ase r/t polypharmacy. Acknowledges need to schedule/keep follow up appts w/ PCP/[facility], Nursing Coordinator.Liza. Verbalizes compliance w/DC aftercare, acknowledges fluid restriction 1.5 L/24 hrs. wt reduction advise, A1C goal <7. currently 9.3. agrees to keep log and discuss w/PCP. Awaiting delivery of FWW from [facility]. Agrees to call to check status if not delivered today 12/03/19. SARA w/[employer]. Continues O2 24/7 2L, uses Bipap/Cpap HS. Needs met, questions answered at DC, no further questions or concerns at this time.
== END 2019-12-02 16:10 | disposition home health service (06) | DRG 292 ==
LOC: ER 08:52 → ED HOLD 10:58 → PCU 3S 12:14
PROVIDERS: ADMIT Family Medicine; ATTEND Family Medicine
PROC: 4A02XM4 Measurement of Cardiac Total Activity, External Approach (ICD-10-PCS; principal; 2019-12-01)
PROC: 3E033HZ Introduction of Radioactive Substance into Peripheral Vein, Percutaneous Approach (ICD-10-PCS; 2019-12-01)
DX: I11.0 Hypertensive heart disease with heart failure (principal); E66.2 Morbid (severe) obesity with alveolar hypoventilation; Z68.41 Body mass index [BMI] 40.0-44.9, adult; I50.43 Acute on chronic combined systolic (congestive) and diastolic (congestive) heart failure; I25.119 Atherosclerotic heart disease of native coronary artery with unspecified angina pectoris; I48.91 Unspecified atrial fibrillation; E11.42 Type 2 diabetes mellitus with diabetic polyneuropathy; E78.00 Pure hypercholesterolemia, unspecified; I27.81 Cor pulmonale (chronic); Z66 Do not resuscitate; Z79.01 Long term (current) use of anticoagulants; Z79.84 Long term (current) use of oral hypoglycemic drugs; Z79.899 Other long term (current) drug therapy; Z82.3 Family history of stroke; Z86.74 Personal history of sudden cardiac arrest; Z90.49 Acquired absence of other specified parts of digestive tract; R00.0 Tachycardia, unspecified; E87.6 Hypokalemia
CPT/HCPCS: 36415; 71045; 78452; 80053; 80061; 81001; 82948; 83036; 83735; 83880; 84100; 84484; 85025; 87081; 93005; 93017; 96374; 97110; 97116; 97162; 99285; A9500; G0378; J1815; J1940; J2785; J3490

== ENCOUNTER 2020-01-08 01:40 | Emergency (ER) | payer MEDICARE, BC ==
[~2020-01-08] VITALS: Ht 175.3 cm; Wt 133.6 kg
[~2020-01-08 01:40] MED LIST changes: -DOXY-1 PO; -GLIP10TA11 PO; +LINA5TAB4 PO; +NITR0.4T51 SL; +SITA1TAB6 PO
[2020-01-08 01:48] VITALS: BP 135/99
--- NOTE | 2020-01-08 02:16 | NUR ---
PT IS DC READY. REPORTS HIS ONLY RIDE WILL NOT BE ABLE TO GET HIM UNTIL 8 AM. HE DOES NOT HAVE HIS OXYGEN WITH HIM SO CANNOT GO HOME IN TAXI. DIRECTOR FOOD AND BEVERAGE UPDATED.
--- NOTE | 2020-01-08 03:02 | NUR ---
AWAITING CALL BACK FROM MICHELLE CARGO TO SEE ABOUT GETTING PT HOME.
--- NOTE | 2020-01-08 03:32 | NUR ---
NURSING PRINTING TABLE HAND, LULU, CALLED FOR ADVICE TO GET PT HOME WE HAVE NOT RECEIVED A CALL BACK FROM MICHELLE CARGO. SHE REQUESTS WE CALL PTS HOME OXYGEN COMPANY TO REQUEST PORTABLE O2 AND THEN WE CAN PROVIDE A TAXI RIDE HOME.
--- NOTE | 2020-01-08 03:53 | NUR ---
[facility] WILL ARRIVE IN 45 MIN TO DROP OFF OXYGEN TANK FOR PT.
--- NOTE | 2020-01-08 04:00 | NUR ---
[facility] ARRIVED TO DROP OFF OXYGEN TANK. [facility] DIS[facility]GED.
[2020-01-08] MEDS ORDERED: LANTUS SQ (21:14)
== END 2020-01-08 04:43 | disposition home or self-care (01) ==
LOC: ER 01:41
DX: S80.822A Blister (nonthermal), left lower leg, initial encounter (principal); R60.0 Localized edema; I50.9 Heart failure, unspecified; E11.42 Type 2 diabetes mellitus with diabetic polyneuropathy; I48.91 Unspecified atrial fibrillation; E78.00 Pure hypercholesterolemia, unspecified; I11.0 Hypertensive heart disease with heart failure; Z90.49 Acquired absence of other specified parts of digestive tract; Z98.890 Other specified postprocedural states; Z79.01 Long term (current) use of anticoagulants; Z79.899 Other long term (current) drug therapy; X58.XXXA Exposure to other specified factors, initial encounter; Y93.89 Activity, other specified; Y92.89 Other specified places as the place of occurrence of the external cause; Y99.8 Other external cause status
CPT/HCPCS: 99284

== ENCOUNTER 2020-03-24 18:22 | Inpatient (IN) | payer MEDICARE, BC ==
[~2020-03-24] VITALS: Ht 182.9 cm; Wt 127.3 kg
[~2020-03-24 18:22] MED LIST changes: +LANTUS SQ; -LINA5TAB4 PO; -NITR0.4T51 SL; -SITA1TAB6 PO
[2020-03-24] MEDS ORDERED: furosemide 10 MG/1 ML 10ml inj IV ONE (18:50)
[2020-03-24] MEDS ORDERED: furosemide 40mg/4ml inj IV ONE (18:50)
[2020-03-24 19:08] LABS: BASOPHILS # (AUTO) 0.1 X10'3 (0-0.2); BASOPHILS % (AUTO) 0.9 % (0-1); EOSINOPHILS # (AUTO) 0.1 X10'3 (0-0.9); EOSINOPHILS % (AUTO) 2.5 % (0-6); HEMOGLOBIN 12.8 g/dl (14.0-17.9); LYMPHOCYTES # (AUTO) 0.9 X10'3 (1.1-4.8); LYMPHOCYTES % (AUTO) 15.5 % (21-51); MEAN CORPUSCULAR HEMOGLOBIN 32.2 PG (27.0-31.0); MEAN CORPUSCULAR HGB CONC 33.6 g/dL (33.0-36.5); MEAN PLATELET VOLUME 7.4 FL (7.4-10.4); MONOCYTES # (AUTO) 0.6 X10'3 (0-0.9); MONOCYTES % (AUTO) 9.5 % (2-12); NEUTROPHILS # (AUTO) 4.3 X10'3 (1.8-7.7); NEUTROPHILS % (AUTO) 71.6 % (42-75); PLATELET COUNT 244 X10'3 (140-440); RED BLOOD COUNT 3.96 X10'6 (4.70-6.10); RED CELL DISTRIBUTION WIDTH 15.2 % (11.5-14.5); WHITE BLOOD COUNT 5.9 X10'3 (4.5-11.0)
[2020-03-24 19:38] LABS: ALANINE AMINOTRANSFERASE 28 U/L (12-78); ALBUMIN/GLOBULIN RATIO 0.5 (1.1-1.5); ALKALINE PHOSPHATASE 108 IU/L (46-116); ANION GAP 1 (8-16); ASPARTATE AMINO TRANSFERASE 23 U/L (10-37); BILIRUBIN,TOTAL 0.8 MG/DL (0.1-1.0); BLOOD UREA NITROGEN 21 MG/DL (7-18); BUN/CREATININE RATIO 20.2 (5.4-32.0); CALCIUM 9.5 MG/DL (8.5-10.1); CHLORIDE 106 MMOL/L (99-107); CREATININE 1.04 MG/DL (0.60-1.10); GLUCOSE 146 MG/DL (70-104); POTASSIUM 5.3 MMOL/L (3.5-5.1); SODIUM 145 MMOL/L (135-145); TOTAL CARBON DIOXIDE 38.4 MMOL/L (24-32); TOTAL PROTEIN 8.6 G/DL (6.4-8.2); eGFR 69 ML/MIN
--- NOTE | 2020-03-24 20:01 | NUR ---
PT PLACED ON BIPAP BY RESPIRATORY. PT REPORTS FEELING "BETTER" AND "I CAN BREATHE NOW"
[2020-03-24] MEDS ORDERED: GLIP10TA11 PO (21:44)
[2020-03-24 21:45] LABS: ABG BASE EXCESS 8.6 mmol/L (-2.0-2.0); ABG HCO3 35.5 mmol/L (22.0-26.0); ABG OXYGEN SATURATION 94.2 % (94-97); ABG PCO2 (T) 59.1 mmHg (35.0-48.0); ABG PO2 (T) 70.5 mmHg (75.0-100.0); FCOHb 1.1 % (0.0-3.9); FO2Hb 93.2 % (94-97); RESPIRATORY RATE 12 b/min; TOTAL HEMOGLOBIN 13.4 G/dl (14.0-18.0)
[2020-03-24] MEDS ORDERED: dextrose 50%-water 50ml dispensing syringe IV PRN ×2 (22:15)
[2020-03-24] MEDS ORDERED: ondansetron/PF 4mg/2ml inj IV PRN (22:15)
[2020-03-24] MEDS ORDERED: mag hydrox/Alum hydrox/simeth 30ml oral suspension PO PRN (22:15)
[2020-03-24] MEDS ORDERED: dextrose ORAL solution 15 GM/59 ML bottle PO PRN ×2 (22:15)
[2020-03-24] MEDS ORDERED: magnesium hydroxide 30ml (MOM) UD suspension PO PRN (22:15)
[2020-03-24] MEDS ORDERED: acetaminophen 325mg tablet PO PRN ×2 (22:15)
[2020-03-24] MEDS ORDERED: morphine 2 MG/ML inj. syringe IV PRN ×2 (22:15)
[2020-03-24] MEDS ORDERED: HYDROcodone/acetaminophen 5mg/325mg tablet PO PRN (22:15)
[2020-03-24] MEDS ORDERED: MESSAGE TO PHARMACY PO ONE (22:15)
[2020-03-24] MEDS ORDERED: glucagon, human recombinant 1mg kit SUBCUT PRN (22:15)
[2020-03-24 22:50] LABS: HEMOGLOBIN A1C 7.5 % (4.5-6.2)
[2020-03-25 01:27] LABS: BASOPHILS # (AUTO) 0.1 X10'3 (0-0.2); BASOPHILS % (AUTO) 1.1 % (0-1); EOSINOPHILS # (AUTO) 0.2 X10'3 (0-0.9); EOSINOPHILS % (AUTO) 2.3 % (0-6); HEMATOCRIT 36.9 % (42.0-52.0); HEMOGLOBIN 12.4 g/dl (14.0-17.9); LYMPHOCYTES # (AUTO) 1.1 X10'3 (1.1-4.8); LYMPHOCYTES % (AUTO) 16.4 % (21-51); MEAN CORPUSCULAR HEMOGLOBIN 32.4 PG (27.0-31.0); MEAN CORPUSCULAR HGB CONC 33.5 g/dL (33.0-36.5); MEAN CORPUSCULAR VOLUME 96.8 FL (78-98); MEAN PLATELET VOLUME 7.2 FL (7.4-10.4); MONOCYTES # (AUTO) 0.8 X10'3 (0-0.9); MONOCYTES % (AUTO) 11.6 % (2-12); NEUTROPHILS # (AUTO) 4.7 X10'3 (1.8-7.7); NEUTROPHILS % (AUTO) 68.6 % (42-75); PLATELET COUNT 230 X10'3 (140-440); RED BLOOD COUNT 3.82 X10'6 (4.70-6.10); RED CELL DISTRIBUTION WIDTH 15.1 % (11.5-14.5); WHITE BLOOD COUNT 6.9 X10'3 (4.5-11.0)
[2020-03-25 01:44] LABS: ANION GAP 0 (8-16); BLOOD UREA NITROGEN 22 MG/DL (7-18); BUN/CREATININE RATIO 22.7 (5.4-32.0); CHLORIDE 107 MMOL/L (99-107); CREATININE 0.97 MG/DL (0.60-1.10); GLUCOSE 115 MG/DL (70-104); POTASSIUM 4.2 MMOL/L (3.5-5.1); SODIUM 146 MMOL/L (135-145); TOTAL CARBON DIOXIDE 38.6 MMOL/L (24-32); eGFR 75 ML/MIN
--- NOTE | 2020-03-25 05:57 | NUR ---
pt sitting to edge of bed. no dizziness or complaints at this time. will continue to monitor pt.
[2020-03-25 08:00] VITALS: BP 155/78
[2020-03-25] MEDS ORDERED: non-formulary drug (Lisinopril* 1 TABLET) PO SCH (08:00)
--- NOTE | 2020-03-25 08:00 | NUR ---
Patient in room PCU 3023 will be admitted from ED. I have received report from Edward ROWAN and had the opportunity to ask questions and assume patient care.
[2020-03-25] MEDS: apixaban 5mg tablet PO SCH ×2 (08:57→19:15)
[2020-03-25] MEDS: potassium Cl 20 mEq SR tablet PO SCH (08:57)
[2020-03-25] MEDS: lisinopril 20mg tablet PO SCH (08:57)
[2020-03-25] MEDS: furosemide 40mg/4ml inj IV SCH ×2 (08:58→19:15)
--- NOTE | 2020-03-25 10:46 | NUR ---
PAGER ID: [phone] MESSAGE: [phone] Anselmo Rivera: Spoke w/ lab in regards to rapid covid test, lab says they need the ok from Dr. Archer or lele yang or they can not run the rapid covid test. thanks kathleen [phone]
[2020-03-25 11:00] VITALS: BP 141/67
--- NOTE | 2020-03-25 11:38 | NUR ---
Pt with T2DM, current A1c is 7.5%, down from 9.3% in November of this year per records. DM education not warranted at this time given well controlled for geriatric age. Will continue to follow. Addendum: 03/25/20 at [address] Amended: Links added.
[2020-03-25] MEDS: insulin Lispro (HumaLOG) vial - multi-dose SQ SCH ×2 (12:56→19:22)
--- NOTE | 2020-03-25 13:22 | NUR ---
PAGER ID: [phone] MESSAGE: [phone] Anselmo Rivera: MARIAH Pt is COVID negative, Keithne
--- NOTE | 2020-03-25 14:55 | NUR ---
DM consult: Patient's A1c has already been addressed this admit, see below. Pt with T2DM, current A1c is 7.5%, down from 9.3% in November of this year per records. DM education not warranted at this time given well controlled for geriatric age. Will continue to follow. Addendum: 03/25/20 at [address] Amended: Links added.
[2020-03-25 15:00] VITALS: BP 118/61
[2020-03-25 18:00] VITALS: BP 135/66
--- NOTE | 2020-03-25 18:25 | NUR ---
Problems reprioritized. Patient report given, questions answered & plan of care reviewed with Macey ROWAN.
[2020-03-25] MEDS: insulin glargine (Lantus) pen - multi-dose SQ SCH (21:02)
[2020-03-25 22:00] VITALS: BP 118/79
[2020-03-26] VITALS (8 sets, daily range): BP systolic 104–158; BP diastolic 53–81
--- NOTE | 2020-03-26 06:10 | NUR ---
Problems reprioritized. Patient report given, questions answered & plan of care reviewed with HARPAL Brenner.
--- NOTE | 2020-03-26 06:21 | NUR ---
Patient in room PCU 3023. I have received report from Macey ROWNA and had the opportunity to ask questions and assume patient care.
[2020-03-26] MEDS: potassium Cl 20 mEq SR tablet PO SCH (07:05)
[2020-03-26] MEDS: lisinopril 20mg tablet PO SCH (07:06)
[2020-03-26] MEDS: furosemide 40mg/4ml inj IV SCH ×2 (07:08→22:29)
[2020-03-26 07:30] LABS: BASOPHILS % (AUTO) 0.4 % (0-1); EOSINOPHILS # (AUTO) 0.1 X10'3 (0-0.9); EOSINOPHILS % (AUTO) 0.7 % (0-6); HEMOGLOBIN 13.2 g/dl (14.0-17.9); LYMPHOCYTES % (AUTO) 8.1 % (21-51); MEAN CORPUSCULAR HEMOGLOBIN 32.4 PG (27.0-31.0); MEAN CORPUSCULAR HGB CONC 33.7 g/dL (33.0-36.5); MEAN PLATELET VOLUME 7.4 FL (7.4-10.4); MONOCYTES % (AUTO) 7.6 % (2-12); NEUTROPHILS # (AUTO) 10.4 X10'3 (1.8-7.7); NEUTROPHILS % (AUTO) 83.2 % (42-75); PLATELET COUNT 246 X10'3 (140-440); RED BLOOD COUNT 4.06 X10'6 (4.70-6.10); WHITE BLOOD COUNT 12.5 X10'3 (4.5-11.0)
[2020-03-26] MEDS: apixaban 5mg tablet PO SCH ×2 (07:31→22:29)
[2020-03-26 07:50] LABS: ALBUMIN 2.9 G/DL (3.4-5.0); ANION GAP 4 (8-16); BLOOD UREA NITROGEN 22 MG/DL (7-18); BUN/CREATININE RATIO 23.4 (5.4-32.0); CALCIUM 9.2 MG/DL (8.5-10.1); CHLORIDE 104 MMOL/L (99-107); CREATININE 0.94 MG/DL (0.60-1.10); GLUCOSE 78 MG/DL (70-104); LACTATE DEHYDROGENASE 195 U/L (85-227); POTASSIUM 3.9 MMOL/L (3.5-5.1); SODIUM 146 MMOL/L (135-145); TOTAL CARBON DIOXIDE 38.1 MMOL/L (24-32); eGFR 78 ML/MIN
[2020-03-26 09:28] LABS: BFSOURCE LEFT PLEURAL FLD; PLEURAL FLUID PH 7.477 (7.63-7.65)
[2020-03-26] MEDS: insulin Lispro (HumaLOG) vial - multi-dose SQ SCH ×2 (10:00→13:15)
[2020-03-26 10:02] LABS: GLUCOSE,BODY FLUID 103 MG/DL; LDH,BODY FLUID 80 U/L; TOTAL PROTEIN,BODY FLUID 3.2 G/DL
[2020-03-26 10:22] LABS: LYMPHOCYTES,BODY FLUID 48 %; MONOCYTES,BODY FLUID 33 %; NEUTROPHILS,BODY FLUID 19 %
[2020-03-26 10:26] LABS: BF MESOTHELIAL CELLS MODERATE; BF RBC COUNT 7225 /CU MM; BF WBC COUNT 255 /CU MM (0-1000); BFAPPEAR HAZY; BFCOLOR AMBER; BFVOLUME 50 ML
--- NOTE | 2020-03-26 18:41 | NUR ---
Problems reprioritized. Patient report given, questions answered & plan of care reviewed with Denisse RN.
--- NOTE | 2020-03-26 19:12 | NUR ---
Patient in room [facility] 3023. I have received report from PERCUSSION INSTRUMENT TUNER ?SUSANA Brunson and had the opportunity to ask questions and assume patient care. Addendum: 03/26/20 at 1913 by Cindy Parham RN Amended: Links added.
[2020-03-26] MEDS: insulin glargine (Lantus) pen - multi-dose SQ SCH (22:37)
[2020-03-26] MEDS ORDERED: methylPREDNISolone sod succ 125mg/2ml vial IV ONE (23:00)
[2020-03-26] MEDS: ipratropium/albuterol 3ml nebule NEB SCH (23:28)
[2020-03-26] MEDS: azithromycin/NS 500mg/250ml 250 ML IV SCH (23:44)
[2020-03-27] MEDS: piperacillin/tazo 3.375gm/50ml 50 ML IV SCH ×3 (01:22→17:40)
[2020-03-27] MEDS: methylPREDNISolone sod succ 125mg/2ml vial IV SCH ×4 (01:25→20:28)
[2020-03-27 02:00] VITALS: BP 124/69
[2020-03-27] MEDS: ipratropium/albuterol 3ml nebule NEB SCH ×6 (03:40→23:45)
--- NOTE | 2020-03-27 04:01 | NUR ---
@0343 Rt woke pt up for resp tx started the treatment then he said got to get up and started getting out of bed refused to listen to staff or use the urinal. had thrown treatment off himself assisted rest way up at his insistance to tbe bedside commode where he peed on bed as heading over to it on the floor and tried to sit down when staff said wait your not on the commode yet he almost sat on Rn's foot and redirected besides 3 people guiding him and bedside commode in place. pt voided on the commode did not even pass gas. skin care done complete bed change done it was dry till he slid off dry flows to stand up thats when he started peeing. after liens gown changes skin care done with 3 assisted back into bed with teaching done. pt asked if he was in the kitchen attempt to reorient to the hospital attempt to reorient time place and date with the pt andd bed alarm on. Addendum: 03/27/20 at 0408 by Cindy Parham RN Amended: Links added.
--- NOTE | 2020-03-27 04:49 | NUR ---
ATTEMPT TO REORIENT PT AGAIN. OF DATE TIME ETC.
[2020-03-27 05:39] LABS: BASOPHILS % (AUTO) 0.1 % (0-1); EOSINOPHILS % (AUTO) 0 % (0-6); HEMATOCRIT 38.4 % (42.0-52.0); HEMOGLOBIN 12.8 g/dl (14.0-17.9); LYMPHOCYTES # (AUTO) 0.6 X10'3 (1.1-4.8); LYMPHOCYTES % (AUTO) 5.7 % (21-51); MEAN CORPUSCULAR HEMOGLOBIN 31.8 PG (27.0-31.0); MEAN CORPUSCULAR HGB CONC 33.5 g/dL (33.0-36.5); MEAN PLATELET VOLUME 7.6 FL (7.4-10.4); MONOCYTES # (AUTO) 0.1 X10'3 (0-0.9); MONOCYTES % (AUTO) 1.3 % (2-12); NEUTROPHILS # (AUTO) 9.7 X10'3 (1.8-7.7); NEUTROPHILS % (AUTO) 92.9 % (42-75); PLATELET COUNT 238 X10'3 (140-440); RED BLOOD COUNT 4.04 X10'6 (4.70-6.10); RED CELL DISTRIBUTION WIDTH 15.2 % (11.5-14.5); WHITE BLOOD COUNT 10.5 X10'3 (4.5-11.0)
[2020-03-27 05:52] LABS: ALBUMIN 2.6 G/DL (3.4-5.0); ANION GAP 2 (8-16); BLOOD UREA NITROGEN 25 MG/DL (7-18); BUN/CREATININE RATIO 22.5 (5.4-32.0); CALCIUM 8.9 MG/DL (8.5-10.1); CHLORIDE 100 MMOL/L (99-107); CREATININE 1.11 MG/DL (0.60-1.10); GLUCOSE 210 MG/DL (70-104); POTASSIUM 3.9 MMOL/L (3.5-5.1); SODIUM 138 MMOL/L (135-145); TOTAL CARBON DIOXIDE 36.4 MMOL/L (24-32); eGFR 64 ML/MIN
[2020-03-27 06:00] VITALS: BP 155/75
--- NOTE | 2020-03-27 06:23 | NUR ---
Problems reprioritized. Patient report given, questions answered & plan of care reviewed with SHAGGY ROWAN. Addendum: 03/27/20 at 0624 by Cindy Parham RN Amended: Links added.
--- NOTE | 2020-03-27 06:43 | NUR ---
Patient in room PCU 3023. I have received report from Denisse ROWAN and had the opportunity to ask questions and assume patient care.
[2020-03-27] MEDS: lisinopril 20mg tablet PO SCH (07:23)
[2020-03-27] MEDS: potassium Cl 20 mEq SR tablet PO SCH (07:23)
[2020-03-27] MEDS: apixaban 5mg tablet PO SCH ×2 (07:23→20:31)
[2020-03-27] MEDS: azithromycin/NS 500mg/250ml 250 ML IV SCH (07:23)
[2020-03-27] MEDS: furosemide 40mg/4ml inj IV SCH ×2 (07:23→20:31)
[2020-03-27] MEDS: insulin Lispro (HumaLOG) vial - multi-dose SQ SCH ×4 (09:10→21:39)
[2020-03-27 11:00] VITALS: BP 119/55
[2020-03-27 15:00] VITALS: BP 134/60
[2020-03-27 18:00] VITALS: BP 144/64
--- NOTE | 2020-03-27 18:43 | NUR ---
Problems reprioritized. Patient report given, questions answered & plan of care reviewed with Mely ROWAN.
--- NOTE | 2020-03-27 18:45 | NUR ---
Patient in room PCU 3023. I have received report from LEO ROWAN and had the opportunity to ask questions and assume patient care.
[2020-03-27] MEDS: lactobacillus rhamnosus 10,000 MMU CELLS/CAPSULE PO SCH (20:31)
[2020-03-27] MEDS: insulin glargine (Lantus) pen - multi-dose SQ SCH (21:38)
[2020-03-27 22:00] VITALS: BP 127/54
[2020-03-28] MEDS: piperacillin/tazo 3.375gm/50ml 50 ML IV SCH ×2 (00:45→08:13)
[2020-03-28 02:00] VITALS: BP 138/68
[2020-03-28] MEDS: methylPREDNISolone sod succ 125mg/2ml vial IV SCH ×2 (02:30→08:13)
[2020-03-28] MEDS: ipratropium/albuterol 3ml nebule NEB SCH ×3 (03:13→10:45)
[2020-03-28 05:56] LABS: BASOPHILS % (AUTO) 0.1 % (0-1); EOSINOPHILS % (AUTO) 0 % (0-6); HEMATOCRIT 37.6 % (42.0-52.0); HEMOGLOBIN 12.8 g/dl (14.0-17.9); LYMPHOCYTES # (AUTO) 0.6 X10'3 (1.1-4.8); MEAN CORPUSCULAR HEMOGLOBIN 32.4 PG (27.0-31.0); MEAN CORPUSCULAR VOLUME 95.5 FL (78-98); MEAN PLATELET VOLUME 7.7 FL (7.4-10.4); MONOCYTES # (AUTO) 0.2 X10'3 (0-0.9); MONOCYTES % (AUTO) 1.9 % (2-12); NEUTROPHILS # (AUTO) 11.4 X10'3 (1.8-7.7); PLATELET COUNT 253 X10'3 (140-440); RED BLOOD COUNT 3.94 X10'6 (4.70-6.10); RED CELL DISTRIBUTION WIDTH 14.7 % (11.5-14.5); WHITE BLOOD COUNT 12.2 X10'3 (4.5-11.0)
--- NOTE | 2020-03-28 06:15 | NUR ---
Problems reprioritized. Patient report given, questions answered & plan of care reviewed with NARGIS ROWAN.
[2020-03-28 06:17] LABS: ALBUMIN 2.6 G/DL (3.4-5.0); ANION GAP 5 (8-16); BLOOD UREA NITROGEN 35 MG/DL (7-18); BUN/CREATININE RATIO 27.8 (5.4-32.0); CALCIUM 9.1 MG/DL (8.5-10.1); CHLORIDE 98 MMOL/L (99-107); CREATININE 1.26 MG/DL (0.60-1.10); GLUCOSE 216 MG/DL (70-104); POTASSIUM 3.8 MMOL/L (3.5-5.1); SODIUM 139 MMOL/L (135-145); TOTAL CARBON DIOXIDE 36.3 MMOL/L (24-32); eGFR 55 ML/MIN
--- NOTE | 2020-03-28 06:18 | NUR ---
Patient in room PCU 3023. I have received report from Kelvin and had the opportunity to ask questions and assume patient care. Patient is sitting up at bedside. He is alert, oriented, and appropriate at this time.
[2020-03-28 07:00] VITALS: BP 130/61
[2020-03-28] MEDS: furosemide 40mg/4ml inj IV SCH (08:00)
[2020-03-28] MEDS ORDERED: azithromycin 250mg tablet PO SCH (08:00)
[2020-03-28] MEDS: apixaban 5mg tablet PO SCH (08:13)
[2020-03-28] MEDS: lactobacillus rhamnosus 10,000 MMU CELLS/CAPSULE PO SCH (08:13)
[2020-03-28] MEDS: potassium Cl 20 mEq SR tablet PO SCH (08:13)
[2020-03-28 08:14] VITALS: BP_SYST 130
[2020-03-28] MEDS: lisinopril 20mg tablet PO SCH (08:14)
[2020-03-28] MEDS: insulin Lispro (HumaLOG) vial - multi-dose SQ SCH (08:27)
[2020-03-28] MEDS ORDERED: LACT1CAP26 PO (10:54)
[2020-03-28] MEDS ORDERED: AZI25OT PO (10:54)
[2020-03-28] MEDS ORDERED: ALBU8.5H8 INH (10:54)
[2020-03-28] MEDS ORDERED: PRED10TA23 PO (10:54)
[2020-03-28] MEDS ORDERED: BUDE10.22 INH (10:54)
[2020-03-28] MEDS ORDERED: CEFD300C3 PO (10:54)
--- NOTE | 2020-03-28 11:39 | NUR ---
Patient declined wound pics Addendum: 03/28/20 at 1139 by Maria Chung RN Amended: Links added.
--- NOTE | 2020-03-28 13:27 | NUR ---
Patient was d/c to home with home health at 1309. PIV was removed with cannula intact. RX were sent to [facility] in [place] . Medication regime, and d/c instructions were reviewed with patient and he verbalized understanding. Patient educated on warning signs and symptoms of when to seek medical help. Patient was alert, oriented, and appropriate at time of d/c. Patient family brought o2 concentrator from home for use in transit.
--- NOTE | 2020-03-28 13:33 | NUR ---
patient refused wound care pictures stating that we didnt need another picture of his butt and his knees were just fine. Addendum: 03/28/20 at 1334 by Maria Chung RN Amended: Links added.
== END 2020-03-28 13:00 | disposition home health service (06) | DRG 177 ==
LOC: ER 18:22 → ED HOLD 22:15 → EDBEDREQSVC 22:47 → EDBEDREQ 03-25 06:28 → PCU 3S 03-25 07:47
PROVIDERS: ADMIT Internal Medicine; ATTEND Family Medicine
PROC: 5A09457 Assistance with Respiratory Ventilation, 24-96 Consecutive Hours, Continuous Positive Airway Pressure (ICD-10-PCS; principal; 2020-03-24)
PROC: 0W9B3ZZ Drainage of Left Pleural Cavity, Percutaneous Approach (ICD-10-PCS; 2020-03-26)
PROC: 0W993ZZ Drainage of Right Pleural Cavity, Percutaneous Approach (ICD-10-PCS; 2020-03-26)
DX: J69.0 Pneumonitis due to inhalation of food and vomit (principal); J96.22 Acute and chronic respiratory failure with hypercapnia; I50.23 Acute on chronic systolic (congestive) heart failure; J44.1 Chronic obstructive pulmonary disease with (acute) exacerbation; I11.0 Hypertensive heart disease with heart failure; E11.42 Type 2 diabetes mellitus with diabetic polyneuropathy; E66.01 Morbid (severe) obesity due to excess calories; E78.00 Pure hypercholesterolemia, unspecified; E78.5 Hyperlipidemia, unspecified; I25.10 Atherosclerotic heart disease of native coronary artery without angina pectoris; G47.33 Obstructive sleep apnea (adult) (pediatric); I48.0 Paroxysmal atrial fibrillation; Z20.828 Contact with and (suspected) exposure to other viral communicable diseases; Z79.01 Long term (current) use of anticoagulants; Z83.3 Family history of diabetes mellitus; Z90.49 Acquired absence of other specified parts of digestive tract; Z68.38 Body mass index [BMI] 38.0-38.9, adult; Z79.899 Other long term (current) drug therapy; Z99.81 Dependence on supplemental oxygen
CPT/HCPCS: 32555; 36415; 36600; 71045; 71250; 80048; 80053; 82803; 82945; 82948; 83036; 83615; 83880; 83986; 84145; 84157; 84484; 85018; 85025; 87070; 87081; 87635; 88108; 88305; 88341; 88342; 89051; 93005; 94640; 94660; 94760; 96374; 97116; 97161; 97530; 99285; G0378; J0456; J1815; J1940; J2543; J2930

== ENCOUNTER 2020-04-06 09:31 | Emergency (ER) | payer MEDICARE, BC ==
[~2020-04-06] VITALS: Ht 180.3 cm; Wt 127.7 kg
[~2020-04-06 09:31] MED LIST changes: +ALBU8.5H8 INH; +AZI25OT PO; +BUDE10.22 INH; -CARV-50 PO; +CEFD300C3 PO; +GLIP10TA11 PO; +LACT1CAP26 PO; +PRED10TA23 PO
--- NOTE | 2020-04-06 10:58 | NUR ---
PER MD REQUEST ,PT MAKE TO STAND UP ON HIS FEET TO SEE IF PT CAN BEAR WEIGHT ,PT WAS ABLE TO BEAR WEIGHT DR PERDOMO AWARE ALSO NOTIFIED THE PROVIDER THAT PT HAS ENTIRE RGT HIP BRUISE UNKN DATE AND TIME ,DENIES NAY TENDERNESS.DR PERDOMO ASSESSED THE PT AND OKAYED TO D/C PT.
[2020-04-06 12:00] VITALS: BP 129/68
== END 2020-04-06 11:52 | disposition home or self-care (01) ==
LOC: ER 09:32
DX: S80.02XA Contusion of left knee, initial encounter (principal); I48.91 Unspecified atrial fibrillation; I11.0 Hypertensive heart disease with heart failure; I50.9 Heart failure, unspecified; E78.00 Pure hypercholesterolemia, unspecified; E11.42 Type 2 diabetes mellitus with diabetic polyneuropathy; Z90.49 Acquired absence of other specified parts of digestive tract; Z79.2 Long term (current) use of antibiotics; Z79.4 Long term (current) use of insulin; Z79.899 Other long term (current) drug therapy; W01.0XXA Fall on same level from slipping, tripping and stumbling without subsequent striking against object, initial encounter; Z91.81 History of falling; Y93.E9 Activity, other interior property and clothing maintenance; Y92.89 Other specified places as the place of occurrence of the external cause; Y99.8 Other external cause status
CPT/HCPCS: 73564; 99284